=== PATIENT | male | born 1945 | race Caucasian/White ===

== ENCOUNTER → 2019-04-08 | Outpatient (CLI) | payer MEDICARE, OTHER ==
--- NOTE | 2019-04-08 12:31 | Diagnostic Imaging Report ---
CLINICAL INDICATION: Patient with low back pain that radiates down right leg. No known injury. EXAM: X-ray of the lumbar spine, three views. COMPARISON: None. FINDINGS: There is grade 1 anterolisthesis of L4 on L5 with no pars defect seen. There is no acute lumbar spine fracture. There are hypertrophic spurs seen throughout the lumbar spine with mild left curvature of the lumbar spine. There is multilevel loss of intervertebral disc height which is severe at the L2-L3 and L3-L4 levels. There is moderate loss of intervertebral disc height at the L4-L5 and L5-S1 levels. There is facet arthropathy/hypertrophy of the lumbar spine. There is sclerosis of the sacroiliac joints bilaterally. IMPRESSION: 1: There is multilevel severe lumbar spine degenerative disease with mild left curvature of the lumbar spine. 2: There is grade 1 anterolisthesis of L4 on L5 with no gross pars defect seen. Dictated by: Dictated on workstation # [id number]
== END ==
LOC: RAD FS 12:04
PROVIDERS: ATTEND Nurse Practitioner Family
DX: M47.816 Spondylosis without myelopathy or radiculopathy, lumbar region (principal); M43.16 Spondylolisthesis, lumbar region; M43.8X6 Other specified deforming dorsopathies, lumbar region
CPT/HCPCS: 72100

== ENCOUNTER → 2019-05-21 | Outpatient (CLI) | payer MEDICARE, OTHER ==
--- NOTE | 2019-05-21 11:22 | Diagnostic Imaging Report ---
PROCEDURE: MRI lumbar spine. TECHNIQUE: Multiplanar, multisequence MRI of the lumbar spine was performed without contrast. INDICATION: Low back pain. COMPARISON: There are no prior MRI examinations available for comparison. FINDINGS: A plain film examination of the lumbar spine performed on 04/08/2019 did note severe degenerative disc and bony disease at L2-L3 and L3-L4 as well as slight anterior translation of L4 with respect to L5. On the T2 parasagittal images those degenerative changes are again evident. Furthermore the axial images to the L4-L5 level reveal that there is severe trefoil stenosis at this level. There is also narrowing of the neural foramen bilaterally, particularly on the left. There is also fairly severe trefoil stenosis at L3-L4 with neural foraminal narrowing bilaterally. At the L2-L3 level there is a disc bulge essentially which narrows the AP diameter to 10.1 mm. There is mild narrowing of the neural foramen bilaterally. At L5-S1 there is a disc which flattens the ventral aspect of the thecal sac and narrows the AP diameter to 10.8 mm. There is also mild narrowing of the neural foramen on the right and moderate narrowing of the neural foramen on the left at L5-S1. There is no evidence for spinal stenosis or nerve root encroachment at L1-L2. There is no abnormal signal arising from the cord or the vertebral bodies to indicate an acute abnormality. There is no sign of a paraspinal mass. 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 There is also neural foraminal narrowing bilaterally at these levels. 2. There is borderline stenosis at L2-L3 and L5-S1 and there is moderate narrowing of the neural foramen on the left at L5-S1. 3. There is no sign of an acute bony abnormality or of a cord lesion. Dictated by: Dictated on workstation # [id number]
== END ==
LOC: RAD 09:43
PROVIDERS: ATTEND Nurse Practitioner Family
DX: M48.07 Spinal stenosis, lumbosacral region (principal)
CPT/HCPCS: 72148

== ENCOUNTER → 2022-03-25 | Outpatient (CLI) | payer MEDICARE, OTHER ==
--- NOTE | 2022-03-25 13:35 | Diagnostic Imaging Report ---
PROCEDURE: US Thyroid. TECHNIQUE: Multiple real-time grayscale images were obtained of the thyroid in various projections. INDICATION: Left thyroid nodule. COMPARISON: None. FINDINGS: Right thyroid lobe: Size (cm): 4.5 x 1.9 x 2.0 Echotexture: Normal Vascularity: Normal Nodules: There is a 5 mm cystic nodule in the right mid thyroid. There is a 2 mm cystic nodule in the superior right thyroid. These do not warrant follow-up. Isthmus: Size (cm): 0.3 Nodules: None Left thyroid lobe: Size (cm): 4.7 x 1.9 x 1.8 Echotexture: Normal Vascularity: Normal Nodules: In the inferior left thyroid, there is a 1.5 cm isoechoic solid nodule with rim calcification. This is a TI-RADS 4 nodule, and borderline qualifies for FNA. IMPRESSION: 1. Left thyroid nodule qualifies for FNA based on TI-RADS criteria. Dictated by: Dictated on workstation # [id number]
== END ==
LOC: RAD 11:03
PROVIDERS: ATTEND Nurse Practitioner
DX: Z01.89 Encounter for other specified special examinations (principal); E04.1 Nontoxic single thyroid nodule
CPT/HCPCS: 76536

== ENCOUNTER → 2022-06-30 | Outpatient (CLI) | payer OTHER ==
[~2022-06-30] MED LIST: LIDOCAINE 1% INJ 10 ML VIAL INJ ONE; LIDOCAINE 1% INJ 10 ML VIAL ONE
[2022-06-30 11:00] VITALS: BP 130/81
[2022-06-30 11:36] VITALS: BP 130/66
--- NOTE | 2022-06-30 13:48 | Diagnostic Imaging Report ---
INDICATION: Left lobe thyroid nodule. PROCEDURE: Patient presents for ultrasound-guided fine-needle aspiration and Rotex biopsy. The patient was brought to the procedure room and placed on the table in supine position. Ultrasound imaging of the neck was performed to evaluate appropriate entry site. Left neck was then prepped and draped in the usual sterile fashion. A small amount of 1% lidocaine was utilized for local anesthesia. Four passes were made into the solid dominant nodule left lobe of the thyroid utilizing 25-gauge needles and fine-needle aspiration technique. A single pass was made with a Rotex needle and a Rotex biopsy was performed. Hemostasis was obtained. Patient tolerated the procedure well and left the department in stable condition. IMPRESSION: Successful ultrasound guided fine needle aspiration and Rotex biopsy of the dominant left lobe thyroid nodule. Pathology results are currently pending. Dictated by: Dictated on workstation # [id number]
== END ==
LOC: RAD 10:28
PROVIDERS: ATTEND Nurse Practitioner
DX: Z01.89 Encounter for other specified special examinations (principal); E04.1 Nontoxic single thyroid nodule
CPT/HCPCS: 10005